=== PATIENT | female | born 1970 | race Two or more races ===

== ENCOUNTER 2018-01-23 11:38 | Emergency (ER) | payer OTHER ==
[2018-01-23 12:34] VITALS: RESP 16; TEMP 97
[2018-01-23] MEDS ORDERED: KETOROLAC TROMETHAMINE 30 MG/ML SOL IM ONE (12:39)
[2018-01-23] MEDS ORDERED: KETOROLAC TROMETHAMINE 30 MG/ML SOL ONE (12:41)
[2018-01-23 14:08] VITALS: BP 116/68; PULSE 65; O2SAT 98
== END 2018-01-23 14:05 | disposition home or self-care (01) | DRG 923 ==
LOC: ED 11:38
DX: T74.11XA Adult physical abuse, confirmed, initial encounter (principal); S00.03XA Contusion of scalp, initial encounter; S00.81XA Abrasion of other part of head, initial encounter; R52 Pain, unspecified
CPT/HCPCS: 70450; 96372; 99283; J1885